=== PATIENT | male | born 1990 | race Caucasian/White ===

== ENCOUNTER 2022-10-26 19:31 | Emergency (ER) | payer SELFPAY ==
[~2022-10-26] VITALS: Ht 180.3 cm; Wt 102.1 kg
--- NOTE | 2022-10-26 22:57 | NUR ---
Patient discharged to home in stable condition. Written and verbal after care instructions given. Patient verbalizes understanding of instruction.
[2022-10-26 23:05] VITALS: BP 132/74
== END 2022-10-26 23:05 | disposition home or self-care (01) ==
LOC: ER 19:36
DX: F07.81 Postconcussional syndrome (principal); Z88.1 Allergy status to other antibiotic agents
CPT/HCPCS: 70450-TC